=== PATIENT | male | born 1995 | race Caucasian/White ===

== ENCOUNTER 2018-05-04 10:13 | Emergency (ER) | payer OTHER ==
[2018-05-04 10:32] VITALS: RESP 18; TEMP 97.3
--- NOTE | 2018-05-04 11:25 | XR ---
Right hand HISTORY: Trauma and pain 3 views of the right hand There is a lucency at the level of the proximal fifth metacarpal, minimal angulation and slight displ acement dorsally and associated soft tissue swelling. No dislocation. IMPRESSION: Proximal fifth metacarpal fracture
--- NOTE | 2018-05-04 11:37 | ED ---
General Adult HPI - General Chief complaint: Extremity Injury, Upper Stated complaint: RIGHT WRIST / HAND INJURY Time Seen by Provider: 05/04/18 10:48 Source: patient, RN notes reviewed Mode of arrival: ambulatory Limitations: no limitations - History of Present Illness Initial comments: Patient 23-year-old male presented to the emergency room today with a chief complaint of injury to the right hand that occurred 2 days ago. He does admit that he punched a tree 2 days ago. He does admit that he's had pain locally to the fourth and fifth digits and wrist area since. Patient denies any other complaints or symptoms. Patient denies any recent fever, chills, shortness of breath, chest pain, back pain, abdominal pain, nausea or vomiting, numbness or tingling, headaches or visual changes, or any other complaints. - Related Data Previous Rx's Medication Instructions Recorded Ibuprofen [Motrin] 600 mg PO Q6HR PRN #30 day 05/04/18 Allergies Allergy/AdvReac Type Severity Reaction Status Date / Time escitalopram oxalate Allergy Unknown Verified 05/04/18 10:58 [From Lexapro] methylphenidate HCl Allergy Unknown Verified 05/04/18 10:58 [From Concerta] risperidone [From Risperdal] Allergy Unknown Verified 05/04/18 10:58 ritiometan AdvReac Nausea & Verified 05/04/18 10:58 Vomiting Review of Systems ROS Statement: Those systems with pertinent positive or pertinent negative responses have been documented in the HPI. ROS Other: All systems not noted in ROS Statement are negative. Past Medical History Past Medical History: No Reported History History of Any Multi-Drug Resistant Organisms: None Reported Additional Past Surgical History / Comment(s): Pyoplasty - Lt Kidney Past Psychological History: ADD/ADHD, Anxiety, Bipolar Smoking Status: Current every day smoker Past Alcohol Use History: Rare Past Drug Use History: Marijuana General Exam - General Exam Comments Initial Comments: General: The patient is awake and alert, in no distress, and does not appear acutely ill. Neck: The neck is supple, there is no tenderness or JVD. Musculoskeletal: Patient does have moderate swelling to the right hand over the fourth and fifth metacarpals. Patient locally tender in these areas. No tenderness down into the digit of the fourth and fifth. Radial pulses 2+. Sensations intact. Cap refill less than 2 seconds. Neurological: A&O x 3. CN II-XII intact, There are no obvious motor or sensory deficits. Coordination appears grossly intact. Speech is normal. Skin: Skin is warm and dry and no rashes or lesions are noted. Psychiatric: Normal mood and affect. Limitations: no limitations Course Vital Signs 05/04/18 10:29 Temperature 97.3 F L Pulse Rate 64 Respiratory 18 Rate Blood Pressure 109/76 O2 Sat by Pulse 99 Oximetry Medical Decision Making - Medical Decision Making X-ray reviewed and is positive for a proximal fifth metacarpal fracture with mild angulation. Injury occurred 2 days ago. At this time patient has been splinted in a short arm ulnar gutter OCL. Neurovascular rechecked and intact. Patient is advised follow-up with orthopedics in the next 2 days. Disposition Clinical Impression: Boxers fracture Disposition: HOME SELF-CARE Condition: Good Instructions: Boxer Fracture (ED) Additional Instructions: Please see splinted in place until follow-up appointment with orthopedics over the next 2 days. Please continue to ice elevate the affected area at least 4 times a day for 20 minutes at a time. Please continue Tylenol/ibuprofen for pain and return to emergency room for any other concerns. Prescriptions: Ibuprofen [Motrin] 600 mg PO Q6HR PRN #30 day PRN Reason: Pain Is patient prescribed a controlled substance at d/c from ED?: No Referrals: None,Stated [Primary Care Provider] - 1-2 days Lester Church DO [Doctor of Osteopathic Medicine] - 1-2 days Time of Disposition: 11:36
[2018-05-04 11:51] VITALS: BP 127/82; PULSE 81
== END 2018-05-04 11:52 | disposition home or self-care (01) ==
LOC: EC 10:13
DX: S62.306A Unspecified fracture of fifth metacarpal bone, right hand, initial encounter for closed fracture (principal); M79.89 Other specified soft tissue disorders; M25.531 Pain in right wrist; F17.200 Nicotine dependence, unspecified, uncomplicated; Z88.1 Allergy status to other antibiotic agents; Z88.8 Allergy status to other drugs, medicaments and biological substances; W22.8XXA Striking against or struck by other objects, initial encounter
CPT/HCPCS: 29125; 99283

== ENCOUNTER 2019-04-27 16:02 | Emergency (ER) | payer OTHER ==
[2019-04-27 16:10] VITALS: BP 130/81; PULSE 81; RESP 18; TEMP 98.5
--- NOTE | 2019-04-27 16:49 | ED ---
General Adult HPI - General Chief complaint: Psychiatric Symptoms Stated complaint: Mental Health Time Seen by Provider: 04/27/19 16:08 Source: patient, police, RN notes reviewed Mode of arrival: ambulatory Limitations: no limitations - History of Present Illness Initial comments: 24-year-old male without a past medical history bipolar disorder, anxiety, ADD presents to the emergency department for a chief complaint of self-destructive behavior. Patient states that he was in an argument with his about "childish behavior on Facebook." Patient states that he cut his left leg with a kitchen knife to demonstrate his frustration. He denies suicidal thoughts but has been suicidal before. He denies thoughts of harming anyone else. Patient states he wants to go home.Patient has no other complaints at this time including shortness of breath, chest pain, abdominal pain, nausea or vomiting, headache, or visual changes. - Related Data Home Medications Medication Instructions Recorded Confirmed No Known Home Medications 04/27/19 04/27/19 Allergies Allergy/AdvReac Type Severity Reaction Status Date / Time escitalopram oxalate Allergy Unknown Verified 04/27/19 16:23 [From Lexapro] methylphenidate HCl Allergy Unknown Verified 04/27/19 16:23 [From Concerta] risperidone [From Risperdal] Allergy Unknown Verified 04/27/19 16:23 ritiometan AdvReac Nausea & Verified 04/27/19 16:23 Vomiting Review of Systems ROS Statement: Those systems with pertinent positive or pertinent negative responses have been documented in the HPI. ROS Other: All systems not noted in ROS Statement are negative. Past Medical History Past Medical History: No Reported History History of Any Multi-Drug Resistant Organisms: None Reported Additional Past Surgical History / Comment(s): Pyoplasty - Lt Kidney Past Psychological History: ADD/ADHD, Anxiety, Bipolar Smoking Status: Current every day smoker Past Alcohol Use History: None Reported Past Drug Use History: Marijuana General Exam Limitations: no limitations General appearance: alert, in no apparent distress Head exam: Present: atraumatic, normocephalic, normal inspection Eye exam: Present: normal appearance, PERRL, EOMI. Absent: scleral icterus, conjunctival injection ENT exam: Present: normal exam, mucous membranes moist Neck exam: Present: normal inspection, full ROM. Absent: tenderness, meningismus, lymphadenopathy Respiratory exam: Present: normal lung sounds bilaterally. Absent: respiratory distress, wheezes, rales, rhonchi, stridor Cardiovascular Exam: Present: regular rate, normal rhythm, normal heart sounds. Absent: systolic murmur, diastolic murmur, rubs, gallop, clicks Extremities exam: Present: full ROM (Full range of motion of both lower extremities.), normal capillary refill (Capillary refill less than 2 seconds, DP pulse 2+ in lower extremities bilaterally), other (Patient has a 1 cm superficial laceration noted to the left anterior tib-fib.). Absent: tenderness, pedal edema, joint swelling, calf tenderness Course Vital Signs 04/27/19 16:06 Temperature 98.5 F Pulse Rate 81 Respiratory 18 Rate Blood Pressure 130/81 O2 Sat by Pulse 98 Oximetry Medical Decision Making - Medical Decision Making Wound was cleaned thoroughly. Steri-Strips were applied. Patient states his tetanus is up-to-date. Patient is denying any suicidal thoughts or thoughts of harming anyone else. Patient does have a history of bipolar disorder. Patient is medically cleared and is currently pending evaluation by EPS. Patient was evaluated by [facility] and they're recommending discharge home. She was given follow-up as well as the phone number to mobile crisis unit. Patient again denying any suicidal thoughts or thoughts of harming anyone else. Patient is much more calm and pleasant at this time. - Lab Data Lab Results 04/27/19 Range/Units 16:50 Urine Opiates Screen Not Detected (NotDetected) Ur Oxycodone Screen Not Detected (NotDetected) Urine Methadone Screen Not Detected (NotDetected) Ur Propoxyphene Screen Not Detected (NotDetected) Ur Barbiturates Screen Not Detected (NotDetected) U Tricyclic Antidepress Not Detected (NotDetected) Ur Phencyclidine Scrn Not Detected (NotDetected) Ur Amphetamines Screen Detected H (NotDetected) U Methamphetamines Scrn Detected H (NotDetected) U Benzodiazepines Scrn Not Detected (NotDetected) Urine Cocaine Screen Not Detected (NotDetected) U Marijuana (THC) Screen Detected H (NotDetected) Disposition Clinical Impression: Laceration, Situational disturbance Disposition: HOME SELF-CARE Condition: Good Instructions (If sedation given, give patient instructions): Laceration (ED) Additional Instructions: Please monitor for signs of infection which is spreading or streaking redness, drainage, or fever and return if these occur. Follow-up with primary care in 1- 2 days as well as referrals given to you. Return to the emergency dept if you have any worsening symptoms. Is patient prescribed a controlled substance at d/c from ED?: No Referrals: Yuan Mcdonald DO [Primary Care Provider] - 1-2 days Time of Disposition: 18:05
[2019-04-27 17:13] LABS: Amphetamine Screen,Urine Detected (NotDetected); Barbiturate Screen,Urine Not Detected (NotDetected); Benzodiazepines Screen,Urine Not Detected (NotDetected); Cocaine Screen,Urine Not Detected (NotDetected); Methadone Screen, Urine Not Detected (NotDetected); Opiate Screen,Urine Not Detected (NotDetected); Oxycodone Screen, Urine Not Detected (NotDetected); Phencyclidine Screen,Urine Not Detected (NotDetected); Tricyclic Antidepressant,Urine Not Detected (NotDetected); Urn Cannabinoid Scrn Detected (NotDetected)
== END 2019-04-27 18:25 | disposition home or self-care (01) ==
LOC: EC 16:02
DX: F43.20 Adjustment disorder, unspecified (principal); S81.812A Laceration without foreign body, left lower leg, initial encounter; F31.9 Bipolar disorder, unspecified; F17.200 Nicotine dependence, unspecified, uncomplicated; Z88.8 Allergy status to other drugs, medicaments and biological substances; X78.9XXA Intentional self-harm by unspecified sharp object, initial encounter
CPT/HCPCS: 80306; 82075; 99285

== ENCOUNTER 2019-11-09 11:38 | Inpatient (IN) | payer OTHER ==
--- NOTE | 2019-11-09 11:50 | ED ---
Psych HPI - General Source: patient, EMS, RN notes reviewed Mode of arrival: EMS Limitations: no limitations <Lester Reich - Last Filed: 11/09/19 11:48> <Milad Arriaga - Last Filed: 11/09/19 15:29> - General Stated Complaint: Mental Health Time Seen by Provider: 11/09/19 11:41 - History of Present Illness Initial Comments: 24-year-old male presents emergency Department chief complaint of depression, suicidal ideation, methamphetamine abuse. Patient states that he has been using for a long period of time. Patient states that he wants to get sober. He does also admits to marijuana use. Denies any physical complaints. Patient does not currently see a psychiatrist or counselor. He is on no prescription medications. No physical harm. Patient states is very depressed, states that he is suicidal no homicidal ideation. (Lester Reich) - Related Data Home Medications Medication Instructions Recorded Confirmed No Known Home Medications 04/27/19 04/27/19 Allergies Allergy/AdvReac Type Severity Reaction Status Date / Time escitalopram oxalate Allergy Unknown Verified 04/27/19 16:23 [From Lexapro] methylphenidate HCl Allergy Unknown Verified 04/27/19 16:23 [From Concerta] risperidone [From Risperdal] Allergy Unknown Verified 04/27/19 16:23 ritiometan AdvReac Nausea & Verified 04/27/19 16:23 Vomiting Review of Systems ROS Other: All systems not noted in ROS Statement are negative. <Lester Reich - Last Filed: 11/09/19 11:48> ROS Other: All systems not noted in ROS Statement are negative. <Milad Arriaga - Last Filed: 11/09/19 15:29> ROS Statement: Those systems with pertinent positive or pertinent negative responses have been documented in the HPI. Past Medical History Past Medical History: No Reported History History of Any Multi-Drug Resistant Organisms: None Reported Additional Past Surgical History / Comment(s): Pyoplasty - Lt Kidney Past Psychological History: ADD/ADHD, Anxiety, Bipolar Smoking Status: Current every day smoker Past Alcohol Use History: None Reported Past Drug Use History: Marijuana <Lester Reich - Last Filed: 11/09/19 11:48> General Exam General appearance: alert, in no apparent distress Head exam: Present: atraumatic, normocephalic, normal inspection Eye exam: Present: normal appearance, PERRL, EOMI. Absent: scleral icterus, conjunctival injection, periorbital swelling ENT exam: Present: normal exam, normal oropharynx, mucous membranes moist, TM's normal bilaterally, normal external ear exam Neck exam: Present: normal inspection, full ROM. Absent: tenderness, meningismus, lymphadenopathy Respiratory exam: Present: normal lung sounds bilaterally. Absent: respiratory distress, wheezes, rales, rhonchi, stridor Cardiovascular Exam: Present: regular rate, normal rhythm, normal heart sounds. Absent: systolic murmur, diastolic murmur, rubs, gallop, clicks GI/Abdominal exam: Present: soft, normal bowel sounds. Absent: distended, tenderness, guarding, rebound, rigid Neurological exam: Present: alert, oriented X3, CN II-XII intact Psychiatric exam: Present: depressed, flat affect Skin exam: Present: warm, dry, intact, normal color. Absent: rash <Lester Reich - Last Filed: 11/09/19 11:48> Course Vital Signs 11/09/19 11:46 Temperature 98.3 F Pulse Rate 98 Respiratory 18 Rate Blood Pressure 123/96 O2 Sat by Pulse 99 Oximetry Medical Decision Making <Milad Arriaga - Last Filed: 11/09/19 15:29> - Medical Decision Making Patient seen by mental health services, who will admit. (Milad Arriaga) Disposition <Lester Reich - Last Filed: 11/09/19 11:48> Is patient prescribed a controlled substance at d/c from ED?: No Decision Time: 15:29 <Milad Arriaga - Last Filed: 11/09/19 15:29> Clinical Impression: Depression, Suicidal ideation Disposition: TRANSFER TO PSYCH HOSP/UNIT
[2019-11-09] MEDS ORDERED: MAG HYDROX/AL HYDROX/SIMETH 30 ML CUP PO PRN (15:18)
[2019-11-09] MEDS ORDERED: ACETAMINOPHEN TAB 325 MG TAB PO PRN (15:18)
[2019-11-09] MEDS ORDERED: LORazepam 1 MG TAB PO PRN (15:18)
[2019-11-09] MEDS ORDERED: MAGNESIUM HYDROXIDE 2,400 MG/10 ML CUP PO PRN (15:18)
[2019-11-09] MEDS ORDERED: ZIPRASIDONE 20 MG VIAL IM PRN (15:18)
[2019-11-09 15:43] LABS: Appearance,Urine Cloudy (Clear); Bacteria,Urine Rare /hpf; Bilirubin,Urine Negative (Negative); Blood,Urine Negative (Negative); Calcium Oxalate Crystals,Urine Few /hpf; Color,Urine Yellow; Glucose,Urine (UA) Negative (Negative); Ketones,Urine Negative (Negative); Leukocyte Esterase,Urine Negative (Negative); Mucus,Urine Many /hpf; Nitrite,Urine Negative (Negative); PH, Urine 5.5 (5.0-8.0); Protein,Urine 1+ (Negative); RBC,Urine 18 /hpf (0-5); Specific Gravity,Urine 1.025 (1.001-1.035); Sperm,Urine Occasional /hpf; Squamous Epithelial Cell,Urine <1 /hpf (0-4); Urobilinogen,Urine <2.0 mg/dL (<2.0); WBC,Urine 4 /hpf (0-5)
[2019-11-09 16:11] LABS: Amphetamine Screen,Urine Detected (NotDetected); Barbiturate Screen,Urine Not Detected (NotDetected); Benzodiazepines Screen,Urine Not Detected (NotDetected); Cocaine Screen,Urine Not Detected (NotDetected); Methadone Screen, Urine Not Detected (NotDetected); Opiate Screen,Urine Not Detected (NotDetected); Oxycodone Screen, Urine Not Detected (NotDetected); Phencyclidine Screen,Urine Not Detected (NotDetected); Tricyclic Antidepressant,Urine Not Detected (NotDetected); Urn Cannabinoid Scrn Detected (NotDetected)
--- NOTE | 2019-11-09 17:05 | P.CONS ---
History of Present Illness - Reason for Consult Consult date: 11/09/19 Medical management - Chief Complaint Depression with suicidal thoughts - History of Present Illness This is a 24-year-old male with past medical history significant for underlying depression who presented to the ER with severe depression and suicidal thoughts. Patient is currently admitted to the psych unit. I was asked to see him for medical management. Patient himself does not have any specific complaints or concerns. He said that he is feeling slightly better. He said that he was very depressed but did not have an actual plan. He only had thoughts about ending his life. He admits to using methamphetamine. He also smokes cigarettes approximately one pack of cigarettes per day. Review of Systems Review of system: 14 points review of systems were obtained and were negative except to what were mentioned in the HPI. Past Medical History Past Medical History: No Reported History History of Any Multi-Drug Resistant Organisms: None Reported Additional Past Surgical History / Comment(s): Pyoplasty - Lt Kidney Past Psychological History: ADD/ADHD, Anxiety, Bipolar Smoking Status: Current every day smoker Past Alcohol Use History: None Reported Past Drug Use History: Marijuana Medications and Allergies Home Medications Medication Instructions Recorded Confirmed Type No Known Home Medications 04/27/19 11/09/19 History Allergies Allergy/AdvReac Type Severity Reaction Status Date / Time amphetamine [From Adderall] Allergy Severe Anaphylaxis Verified 11/09/19 16:56 dextroamphetamine Allergy Severe Anaphylaxis Verified 11/09/19 16:56 [From Adderall] escitalopram oxalate Allergy Severe Anaphylaxis Verified 11/09/19 16:56 [From Lexapro] methylphenidate Allergy Severe Anaphylaxis Verified 11/09/19 16:55 [From Ritalin] methylphenidate HCl Allergy Severe Anaphylaxis Verified 11/09/19 16:56 [From Concerta] risperidone [From Risperdal] Allergy Severe Anaphylaxis Verified 11/09/19 16:56 trazodone Allergy Severe Anaphylaxis Verified 11/09/19 16:55 ritiometan AdvReac Nausea & Verified 11/09/19 15:50 Vomiting Physical Exam Vitals: Vital Signs Temp Pulse Resp BP Pulse Ox 11/09/19 15:33 98.9 F 71 16 129/72 99 11/09/19 11:46 98.3 F 98 18 123/96 99 Intake and Output 05/06/20 05/06/20 05/06/20 06:59 14:59 22:59 Other: Weight 70.307 kg General: The patient is awake and alert, in no distress Eye: there is normal conjunctiva bilaterally. Neck: The neck is supple, there is no JVD. Cardiovascular: Normal S1-S2, no S3-S4, no murmurs. Respiratory: Lungs clear to auscultation bilaterally Gastrointestinal: Abdomen is soft, nontender Musculoskeletal: There is no pedal edema. Neurological:. Speech is normal. Skin: Skin is warm and dry Results Labs: Abnormal Lab Results - Last 24 Hours (Table) 11/09/19 Range/Units 15:35 Urine Protein 1+ H (Negative) Urine RBC 18 H (0-5) /hpf Calcium Oxalate Crystal Few H (None) /hpf Urine Bacteria Rare H (None) /hpf Urine Mucus Many H (None) /hpf Urine Sperm Occasional H (None) /hpf Ur Amphetamines Screen Detected H (NotDetected) U Marijuana (THC) Screen Detected H (NotDetected) Assessment and Plan Assessment: 1. Severe depression with suicidal thoughts, management per psychiatry 2. Methamphetamine abuse: Counseled extensively to quit 3. Tobacco abuse: Counseled to quit. I would order nicotine patch Today, I reviewed his medication list and lab work results. Management per psychiatry. Thank you very much for the consultation. Please do not hesitate to call us back. We will follow-up on as-needed basis only.
[2019-11-09] MEDS: NICOTINE 21MG/24HR PATCH TRANSDERM SCH (19:09)
[2019-11-10 08:12] LABS: Basophils % (A) 1 %; Eosinophils # (A) 0.1 k/uL (0-0.7); Eosinophils % (A) 2 %; HCT 42.7 % (39.0-53.0); HGB 14.6 gm/dL (13.0-17.5); Lymphocytes # (A) 2.7 k/uL (1.0-4.8); Lymphocytes % (A) 38 %; MCH 31.7 pg (25.0-35.0); MCHC 34.3 g/dL (31.0-37.0); MCV 92.5 fL (80.0-100.0); Monocytes # (A) 0.4 k/uL (0-1.0); Monocytes % (A) 5 %; Neutrophils # (A) 3.6 k/uL (1.3-7.7); Neutrophils % (A) 51 %; Platelet Count 306 k/uL (150-450); RBC 4.62 m/uL (4.30-5.90); RDW 12.2 % (11.5-15.5)
[2019-11-10 08:28] LABS: ALT 16 U/L (4-49); AST 25 U/L (17-59); African American GFR (CKD) >90 (>60 ml/min/1.73 sqM); Albumin 4.5 g/dL (3.5-5.0); Alkaline Phosphatase 61 U/L (38-126); Anion Gap 10 mmol/L; Blood Urea Nitrogen 16 mg/dL (9-20); Calcium 9.6 mg/dL (8.4-10.2); Carbon Dioxide 28 mmol/L (22-30); Chloride 101 mmol/L (98-107); Glucose 91 mg/dL (74-99); Non-African American GFR(CKD) >90 (>60 ml/min/1.73 sqM); Potassium 4.4 mmol/L (3.5-5.1); Sodium 139 mmol/L (137-145); Total Bilirubin 0.7 mg/dL (0.2-1.3); Total Protein 7.7 g/dL (6.3-8.2)
[2019-11-10] MEDS: NICOTINE 21MG/24HR PATCH TRANSDERM SCH (08:37)
[2019-11-10] MEDS ORDERED: NICOTINE 21MG/24HR PATCH TRANSDERM SCH ×2 (09:00)
[2019-11-10] MEDS ORDERED: FLUoxetine HCL 20 MG CAP PO SCH (11:30)
--- NOTE | 2019-11-10 11:41 | P.HP ---
Psychiatric H&P - . H&P Date: 11/10/19 History & Physical: Allergies Allergy/AdvReac Type Severity Reaction Status Date / Time amphetamine From Adderall Allergy Severe Anaphylaxis Verified 11/09/19 16:56 dextroamphetamine Allergy Severe Anaphylaxis Verified 11/09/19 16:56 From Adderall escitalopram oxalate Allergy Severe Anaphylaxis Verified 11/09/19 16:56 From Lexapro methylphenidate Allergy Severe Anaphylaxis Verified 11/09/19 16:55 From Ritalin methylphenidate HCl Allergy Severe Anaphylaxis Verified 11/09/19 16:56 From Concerta risperidone From Risperdal Allergy Severe Anaphylaxis Verified 11/09/19 16:56 trazodone Allergy Severe Anaphylaxis Verified 11/09/19 16:55 ritiometan AdvReac Nausea & Verified 11/09/19 15:50 Vomiting Vital Signs Temp 99.1 F 11/09/19 22:26 Pulse 81 11/09/19 15:52 Resp 16 11/09/19 15:52 BP 118/81 11/09/19 15:52 Pulse Ox 99 11/09/19 15:52 Intake & Output 11/09/19 11/10/19 11/10/19 18:59 06:59 18:59 Weight 63.957 kg Laboratory Last Values WBC 7.0 k/uL (3.8-10.6) 11/10/19 07:24 RBC 4.62 m/uL (4.30-5.90) 11/10/19 07:24 Hgb 14.6 gm/dL (13.0-17.5) 11/10/19 07:24 Hct 42.7 % (39.0-53.0) 11/10/19 07:24 MCV 92.5 fL (80.0-100.0) 11/10/19 07:24 MCH 31.7 pg (25.0-35.0) 11/10/19 07:24 MCHC 34.3 g/dL (31.0-37.0) 11/10/19 07:24 RDW 12.2 % (11.5-15.5) 11/10/19 07:24 Plt Count 306 k/uL (150-450) 11/10/19 07:24 Neutrophils % 51 % 11/10/19 07:24 Lymphocytes % 38 % 11/10/19 07:24 Monocytes % 5 % 11/10/19 07:24 Eosinophils % 2 % 11/10/19 07:24 Basophils % 1 % 11/10/19 07:24 Neutrophils # 3.6 k/uL (1.3-7.7) 11/10/19 07:24 Lymphocytes # 2.7 k/uL (1.0-4.8) 11/10/19 07:24 Monocytes # 0.4 k/uL (0-1.0) 11/10/19 07:24 Eosinophils # 0.1 k/uL (0-0.7) 11/10/19 07:24 Basophils # 0.0 k/uL (0-0.2) 11/10/19 07:24 Sodium 139 mmol/L (137-145) 11/10/19 07:24 Potassium 4.4 mmol/L (3.5-5.1) 11/10/19 07:24 Chloride 101 mmol/L (98-107) 11/10/19 07:24 Carbon Dioxide 28 mmol/L (22-30) 11/10/19 07:24 Anion Gap 10 mmol/L 11/10/19 07:24 BUN 16 mg/dL (9-20) 11/10/19 07:24 Creatinine 0.71 mg/dL (0.66-1.25) 11/10/19 07:24 Est GFR (CKD-EPI)AfAm >90 (>60 ml/min/1.73 sqM) 11/10/19 07:24 Est GFR (CKD-EPI)NonAf >90 (>60 ml/min/1.73 sqM) 11/10/19 07:24 Glucose 91 mg/dL (74-99) 11/10/19 07:24 Calcium 9.6 mg/dL (8.4-10.2) 11/10/19 07:24 Total Bilirubin 0.7 mg/dL (0.2-1.3) 11/10/19 07:24 AST 25 U/L (17-59) 11/10/19 07:24 ALT 16 U/L (4-49) 11/10/19 07:24 Alkaline Phosphatase 61 U/L (38-126) 11/10/19 07:24 Total Protein 7.7 g/dL (6.3-8.2) 11/10/19 07:24 Albumin 4.5 g/dL (3.5-5.0) 11/10/19 07:24 TSH 0.893 mIU/L (0.465-4.680) 11/10/19 07:24 Urine Color Yellow 11/09/19 15:35 Urine Appearance Cloudy (Clear) 11/09/19 15:35 Urine pH 5.5 (5.0-8.0) 11/09/19 15:35 Ur Specific [place] 1.025 (1.001-1.035) 11/09/19 15:35 Urine Protein 1+ (Negative) H 11/09/19 15:35 Urine Glucose (UA) Negative (Negative) 11/09/19 15:35 Urine Ketones Negative (Negative) 11/09/19 15:35 Urine Blood Negative (Negative) 11/09/19 15:35 Urine Nitrite Negative (Negative) 11/09/19 15:35 Urine Bilirubin Negative (Negative) 11/09/19 15:35 Urine Urobilinogen <2.0 mg/dL (<2.0) 11/09/19 15:35 Ur Leukocyte Esterase Negative (Negative) 11/09/19 15:35 Urine RBC 18 /hpf (0-5) H 11/09/19 15:35 Urine WBC 4 /hpf (0-5) 11/09/19 15:35 Ur Squamous Epith Cells <1 /hpf (0-4) 11/09/19 15:35 Calcium Oxalate Crystal Few /hpf (None) H 11/09/19 15:35 Urine Bacteria Rare /hpf (None) H 11/09/19 15:35 Urine Mucus Many /hpf (None) H 11/09/19 15:35 Urine Sperm Occasional /hpf (None) H 11/09/19 15:35 Urine Opiates Screen Not Detected (NotDetected) 11/09/19 15:35 Ur Oxycodone Screen Not Detected (NotDetected) 11/09/19 15:35 Urine Methadone Screen Not Detected (NotDetected) 11/09/19 15:35 Ur Propoxyphene Screen Not Detected (NotDetected) 11/09/19 15:35 Ur Barbiturates Screen Not Detected (NotDetected) 11/09/19 15:35 U Tricyclic Antidepress Not Detected (NotDetected) 11/09/19 15:35 Ur Phencyclidine Scrn Not Detected (NotDetected) 11/09/19 15:35 Ur Amphetamines Screen Detected (NotDetected) H 11/09/19 15:35 U Methamphetamines Scrn Not Detected (NotDetected) 11/09/19 15:35 U Benzodiazepines Scrn Not Detected (NotDetected) 11/09/19 15:35 Urine Cocaine Screen Not Detected (NotDetected) 11/09/19 15:35 U Marijuana (THC) Screen Detected (NotDetected) H 11/09/19 15:35 11/10/19 11:34 IDENTIFYING DATA: Patient is a 24-year-old male with a history of polysubstance abuse who currently lives with his mother and also his has 2 kids and is currently unemployed. HPI: Patient presented to the hospital yesterday via EMS with complaints of depression and suicidal thoughts. According to ER report patient was endorsing depression and suicidal ideations and recent methamphetamine use. He also s tated that he wanted to get sober and UDS was positive for THC and methamphetamine. Patient was admitted to the mental health unit and was interviewed by screenplay writer today. Patient appeared to be superficially cooperative and somewhat appropriate during the interview. He states that he went on a "meth binge" for the past 10 days and states that he was using "a lot" and cannot remember much of what happened. He states that he was feeling suicidal and was eating poorly and sleeping poorly at that time. He claims that overnight he feels a bit better today and states that "my attitude is getting t here". He states that he would like to stay sober however refused rehab at this time. He states that he does have some anxiety. He claims that he was dealing with some depression before hand. He claims that he had a better sleep last night and appetite is fair. Patient denies any suicidal or homicidal ideations intent or plan. At this time patient denies any auditory or visual hallucinations. Patient denies any flight of ideas racing thoughts and increased in goal directed behavior. Patient admits to using methamphetamine, THC daily and cigarettes daily. PAST PSYCHIATRIC HISTORY: Patient states that he has a history of depression and anxiety. He denies any mental health admissions in the past and claims that he previously was on Wellbutrin. He admits to one episode of attempting to hang himself with a phone cord. He denies any psychiatric outpatient follow-up. PMH:denies ALLERGIES: as per EMR CHEMICAL DEPENDENCY HISTORY: as per HPI FAMILY PSYCHIATRIC/SUBSTANCE USE HISTORY: denies SOCIAL HISTORY: Patient was born and raised in [place] and states that he "moved all over [place]". He claims that currently he is living with his mother and also his and has 2 kids and is unemployed. He states that he completed up to the ninth grade and dropped out to take care of children. MENTAL STATUS EXAM: General Appearance: Patient appears to be stated age is alert, directable, and superficially cooperative. Patient appears to have fair hygiene and grooming. Multiple tattoos over his body. Behavior: Patient is seated without any agitated behavior. Speech: Patient's speech is fluent and nonpressured. Mood/Affect: Patient reports their mood is "a little depressed", affect is congruent and constricted. Suicidality/Homicidality: Patient denies having any homicidal ideation intent or plan. Denies any suicidal ideations intent or plan Perceptions: Patient denies any visual hallucinations and denies any auditory hallucinations Though content/process: There is no evidence of any delusional thought content and thought process is linear and goal-directed. Memory and concentration: AOX3, grossly intact for the purposes of this session. Can spell "WORLD" backwards Judgment and insight: Limited STRENGTHS/WEAKNESSES: strength is that patient is resilient. Weakness is that patient has poor judgment INTELLECT: average IMPRESSIONS: Depressive disorder unspecified, rule out substance-induced depressive disorder Anxiety disorder unspecified Methamphetamine abuse Cannabis use disorder Nicotine dependence PLAN: -Patient is admitted under voluntary status to MHU for stabilization of psychiatric symptoms and safety. Patient signed adult voluntary form and medication consent and is placed in patient's chart. -Medications : Will start patient on Prozac 20 mg daily for mood/anxiety. -Ativan and Geodon PRN for agitation/aggression -Patient was counselled on substance abuse and desired to cut back on use -Patient was informed of the risks, benefits and side effects of the medication and patient verbally consented to taking the medications. Patient signed med consent form and was placed in chart. -Internal Medicine consult to perform medical evaluation and physical. -NRT - nicotine patch -SW on board for discharge planning. Encourage patient to participate in groups to work on coping skills. Outside Cutter spoke in depth with patient about options for substance use treatment and offered inpatient substance-abuse rehab however patient declined at this time and states that he would rather do outpatient treatment and try to "quit cold turkey". Likely discharge back home tomorrow.
--- NOTE | 2019-11-10 16:58 | P.PN ---
Progress Note - Text I was asked to reassess the patient as he was complaining of a ulcers on his penis. Patient reported that he noted the ulcer today. He said that he has multiple sexual partners. On exam, patient had painful genital ulcers mostly on the dorsal aspect of the penis with significant tenderness to palpation. Testicles appeared normal. She denies any fevers or myalgia. He has a highly suspicious for herpes. I would start valacyclovir 1000 mg twice daily for 7 days. Recommend follow-up with PCP for further screening for STDs including HIV.
[2019-11-10] MEDS ORDERED: ACYCLOVIR 800 MG TAB PO SCH (17:00)
[2019-11-10] MEDS ORDERED: MIRTAZAPINE 15 MG TAB PO SCH (21:00)
[2019-11-10] MEDS: valACYclovir HCL 1,000 MG TABLET PO SCH (21:21)
[2019-11-11 07:17] VITALS: BP 118/64; PULSE 59; RESP 17; TEMP 98.5
--- NOTE | 2019-11-11 09:31 | P.DS ---
Providers Date of admission: 11/09/19 15:16 Expected date of discharge: 11/11/19 Attending physician: Jordy Ghosh MD Consults: 11/09/19 15:18 Consult Physician Routine Consulting Provider: Kayy Bunn Consult Reason/Comments: H and P Do you want consulting provider notified?: Yes Primary care physician: Stated None - Discharge Diagnosis(es) (1) Depressive disorder Current Visit: Yes Status: Acute Priority: High (2) Anxiety disorder Current Visit: Yes Status: Acute Priority: Medium (3) Methamphetamine abuse Current Visit: Yes Status: Acute Priority: High (4) Cannabis use disorder, mild, abuse Current Visit: Yes Status: Acute Priority: Medium (5) Nicotine dependence Current Visit: Yes Status: Acute Priority: Low Hospital Course: Admission HPI: Patient is a 24-year-old male with a history of polysubstance abuse who currently lives with his mother and also his has 2 kids and is currently unemployed. Patient presented to the hospital yesterday via EMS with complaints of depression and suicidal thoughts. According to ER report patient was endorsing depression and suicidal ideations and recent methamphetamine use. He also stated that he wanted to get sober and UDS was positive for THC and methamphetamine. Patient was admitted to the mental health unit and was interviewed by real estate underwriter today. Patient appeared to be superficially cooperative and somewhat appropriate during the interview. He states that he went on a "meth binge" for the past 10 days and states that he was using "a lot" and cannot remember much of what happened. He states that he was feeling suicidal and was eating poorly and sleeping poorly at that time. He claims that overni ght he feels a bit better today and states that "my attitude is getting there". He states that he would like to stay sober however refused rehab at this time. He states that he does have some anxiety. He claims that he was dealing with some depression before hand. He claims that he had a better sleep last night and appetite is fair. Patient denies any suicidal or homicidal ideations intent or plan. At this time patient denies any auditory or visual hallucinations. Patient denies any flight of ideas racing thoughts and increased in goal directed behavior. Patient admits to using methamphetamine, THC daily and cigarettes daily. Hospital course: Upon admission to the unit patient was initially depressed and anxious and going through withdrawals from his substance use. Patient was however directable and agreeable to commence treatment. Patient got along well with other patients on the unit and followed unit protocol. Patient was compliant with the medications and denied any side effects throughout hospital course. Patient was started on Remeron 15 mg daily at bedtime for mood/insomnia. Patient spoke of his stressors and engaged in therapy both group and individual. Patient was also seen by medical team for history and physical exam. Patient complained of having painful genital lesions/ulcers and was evaluated by hospitalist who stated that lesions are most likely due to genital herpes and informed patient that he needed to have an outpatient STD panel and also will be started on valacyclovir for 7 days. Throughout the course of the hospitalization patient gradually improved with regards to mood, anxiety, sleep. Patient was more future oriented prior to discharge. On the day of discharge patient denied any suicidal or homicidal ideations intent or plan denied any auditory or visual hallucinations. Patient endorsed wanting to live for his health and children. The patient denied any access to guns or weapons. Patient denied any paranoia and did not endorse any delusions. Patient does have a significant history of substance abuse and was counseled on abstaining from all substances including alcohol and marijuana. Patient was fairly superficial and claimed that he did not have a "drug problem" and was offered inpatient substance rehab however patient declined several times. Patient states that he wants to "quit cold turkey". Patient was also counseled on the medications and need for regular compliance and was encouraged to follow-up with their outpatient appointment for mental health and also for primary care. Prior to discharge a family meeting will be arranged by social sciences research scientist to answer any questions and ensure safety upon discharge. Mental status exam: General Appearance: Patient appears to be stated age is tall/thin, alert, and directable. Patient is in no acute distress and has fair hygiene and grooming Behavior: Patient is calmly seated without any agitated behavior. Speech: Patient's speech is fluent and nonpressured. Mood/Affect: Patient reports their mood is "good", affect is congruent and euthymic. Suicidality/Homicidality: Patient denies having any suicidal or homicidal ideation intent or plan. Perceptions: Patient denies any auditory or visual hallucinations. Though content/process: There is no evidence of any delusional thought content and thought process is linear and goal-directed. Memory and concentration: AOX3, grossly intact for the purposes of this session. Can spell "WORLD" backwards correctly. Judgment and insight: improved with guarded prognosis Impression: Depressive disorder unspecified, rule out substance-induced depressive disorder Anxiety disorder unspecified Methamphetamine abuse Cannabis use disorder Nicotine dependence Plan: -Continue with discharge today as patient has improved and stabilized psychiatrically and is not currently an imminent threat to himself and/or others. -Continue medications: Remeron 15 mg daily at bedtime for insomnia/mood. -Patient was counseled on the need for medication compliance and appropriate follow-up at mental health and also primary care for medical issues. Patient verbalized understanding and agreed. -Social work to arrange for and conduct family meeting to ensure safety upon discharge and answer any questions/concerns. Social work also to arrange for patients follow up appointments for psychiatric care along with follow up with [facility] care provider. Patient was also advised to obtain a full STD panel as an outpatient with his PCP and was counseled on safe sex practices. -Patient counseled on abstaining from recreational drugs and marijuana and alcohol. Was informed/educated on the adverse effects on their physical and mental health. Patient verbally agreed and understood. Patient was offered substance abuse treatment however declined at this time. -Patient was instructed to return to the hospital or seek immediate medical care if their psychiatric or medical symptoms do worsen or reoccur. Allergies Allergy/AdvReac Type Severity Reaction Status Date / Time amphetamine [From Adderall] Allergy Severe Anaphylaxis Verified 11/09/19 16:56 dextroamphetamine Allergy Severe Anaphylaxis Verified 11/09/19 16:56 [From Adderall] escitalopram oxalate Allergy Severe Anaphylaxis Verified 11/09/19 16:56 [From Lexapro] methylphenidate Allergy Severe Anaphylaxis Verified 11/09/19 16:55 [From Ritalin] methylphenidate HCl Allergy Severe Anaphylaxis Verified 11/09/19 16:56 [From Concerta] risperidone [From Risperdal] Allergy Severe Anaphylaxis Verified 11/09/19 16:56 trazodone Allergy Severe Anaphylaxis Verified 11/09/19 16:55 ritiometan AdvReac Nausea & Verified 11/09/19 15:50 Vomiting Laboratory Results WBC 7.0 k/uL (3.8-10.6) 11/10/19 07:24 RBC 4.62 m/uL (4.30-5.90) 11/10/19 07:24 Hgb 14.6 gm/dL (13.0-17.5) 11/10/19 07:24 Hct 42.7 % (39.0-53.0) 11/10/19 07:24 MCV 92.5 fL (80.0-100.0) 11/10/19 07:24 MCH 31.7 pg (25.0-35.0) 11/10/19 07:24 MCHC 34.3 g/dL (31.0-37.0) 11/10/19 07:24 RDW 12.2 % (11.5-15.5) 11/10/19 07:24 Plt Count 306 k/uL (150-450) 11/10/19 07:24 Neutrophils % 51 % 11/10/19 07:24 Lymphocytes % 38 % 11/10/19 07:24 Monocytes % 5 % 11/10/19 07:24 Eosinophils % 2 % 11/10/19 07:24 Basophils % 1 % 11/10/19 07:24 Neutrophils # 3.6 k/uL (1.3-7.7) 11/10/19 07:24 Lymphocytes # 2.7 k/uL (1.0-4.8) 11/10/19 07:24 Monocytes # 0.4 k/uL (0-1.0) 11/10/19 07:24 Eosinophils # 0.1 k/uL (0-0.7) 11/10/19 07:24 Basophils # 0.0 k/uL (0-0.2) 11/10/19 07:24 Sodium 139 mmol/L (137-145) 11/10/19 07:24 Potassium 4.4 mmol/L (3.5-5.1) 11/10/19 07:24 Chloride 101 mmol/L (98-107) 11/10/19 07:24 Carbon Dioxide 28 mmol/L (22-30) 11/10/19 07:24 Anion Gap 10 mmol/L 11/10/19 07:24 BUN 16 mg/dL (9-20) 11/10/19 07:24 Creatinine 0.71 mg/dL (0.66-1.25) 11/10/19 07:24 Est GFR (CKD-EPI)AfAm >90 (>60 ml/min/1.73 sqM) 11/10/19 07:24 Est GFR (CKD-EPI)NonAf >90 (>60 ml/min/1.73 sqM) 11/10/19 07:24 Glucose 91 mg/dL (74-99) 11/10/19 07:24 Calcium 9.6 mg/dL (8.4-10.2) 11/10/19 07:24 Total Bilirubin 0.7 mg/dL (0.2-1.3) 11/10/19 07:24 AST 25 U/L (17-59) 11/10/19 07:24 ALT 16 U/L (4-49) 11/10/19 07:24 Alkaline Phosphatase 61 U/L (38-126) 11/10/19 07:24 Total Protein 7.7 g/dL (6.3-8.2) 11/10/19 07:24 Albumin 4.5 g/dL (3.5-5.0) 11/10/19 07:24 TSH 0.893 mIU/L (0.465-4.680) 11/10/19 07:24 Urine Color Yellow 11/09/19 15:35 Urine Appearance Cloudy (Clear) 11/09/19 15:35 Urine pH 5.5 (5.0-8.0) 11/09/19 15:35 Ur Specific [place] 1.025 (1.001-1.035) 11/09/19 15:35 Urine Protein 1+ (Negative) H 11/09/19 15:35 Urine Glucose (UA) Negative (Negative) 11/09/19 15:35 Urine Ketones Negative (Negative) 11/09/19 15:35 Urine Blood Negative (Negative) 11/09/19 15:35 Urine Nitrite Negative (Negative) 11/09/19 15:35 Urine Bilirubin Negative (Negative) 11/09/19 15:35 Urine Urobilinogen <2.0 mg/dL (<2.0) 11/09/19 15:35 Ur Leukocyte Esterase Negative (Negative) 11/09/19 15:35 Urine RBC 18 /hpf (0-5) H 11/09/19 15:35 Urine WBC 4 /hpf (0-5) 11/09/19 15:35 Ur Squamous Epith Cells <1 /hpf (0-4) 11/09/19 15:35 Calcium Oxalate Crystal Few /hpf (None) H 11/09/19 15:35 Urine Bacteria Rare /hpf (None) H 11/09/19 15:35 Urine Mucus Many /hpf (None) H 11/09/19 15:35 Urine Sperm Occasional /hpf (None) H 11/09/19 15:35 Urine Opiates Screen Not Detected (NotDetected) 11/09/19 15:35 Ur Oxycodone Screen Not Detected (NotDetected) 11/09/19 15:35 Urine Methadone Screen Not Detected (NotDetected) 11/09/19 15:35 Ur Propoxyphene Screen Not Detected (NotDetected) 11/09/19 15:35 Ur Barbiturates Screen Not Detected (NotDetected) 11/09/19 15:35 U Tricyclic Antidepress Not Detected (NotDetected) 11/09/19 15:35 Ur Phencyclidine Scrn Not Detected (NotDetected) 11/09/19 15:35 Ur Amphetamines Screen Detected (NotDetected) H 11/09/19 15:35 U Methamphetamines Scrn Not Detected (NotDetected) 11/09/19 15:35 U Benzodiazepines Scrn Not Detected (NotDetected) 11/09/19 15:35 Urine Cocaine Screen Not Detected (NotDetected) 11/09/19 15:35 U Marijuana (THC) Screen Detected (NotDetected) H 11/09/19 15:35 Vital Signs Temp 98.5 F 11/11/19 06:50 Pulse 59 L 11/11/19 06:50 Resp 17 11/11/19 06:50 BP 118/64 11/11/19 06:50 Pulse Ox 98 11/11/19 06:50 Patient Condition at Discharge: Stable Plan - Discharge Summary Discharge Rx Participant: Yes New Discharge Prescriptions: New Nicotine 21Mg/24Hr Patch [Habitrol] 1 patch TRANSDERM DAILY 14 Days patch Mirtazapine [Remeron] 15 mg PO HS 30 Days tab Acetaminophen Tab [Tylenol] 650 mg PO Q4HR PRN tab PRN Reason: Pain/Discomfort valACYclovir HCL [Valtrex] 1,000 mg PO BID 7 Days tablet Discharge Medication List Acetaminophen Tab [Tylenol] 650 mg PO Q4HR PRN tab 11/11/19 [Rx] Mirtazapine [Remeron] 15 mg PO HS 30 Days tab 11/11/19 [Rx] Nicotine 21Mg/24Hr Patch [Habitrol] 1 patch TRANSDERM DAILY 14 Days patch 11/11/19 [Rx] valACYclovir HCL [Valtrex] 1,000 mg PO BID 7 Days tablet 11/11/19 [Rx] Follow up Appointment(s)/Referral(s): None,Stated [Primary Care Provider] - 1-2 days Discharge Disposition: HOME SELF-CARE
[2019-11-11] MEDS: NICOTINE 21MG/24HR PATCH TRANSDERM SCH (10:33)
[2019-11-11] MEDS: valACYclovir HCL 1,000 MG TABLET PO SCH (10:33)
== END 2019-11-11 12:05 | disposition home or self-care (01) | DRG 885 ==
LOC: EC 11:38 → 3MHU 15:16
PROVIDERS: ADMIT Psychiatry & Neurology Psychiatry; ATTEND Psychiatry & Neurology Psychiatry
DX: F31.4 Bipolar disorder, current episode depressed, severe, without psychotic features (principal); R45.851 Suicidal ideations; F15.10 Other stimulant abuse, uncomplicated; F41.9 Anxiety disorder, unspecified; F12.10 Cannabis abuse, uncomplicated; F17.210 Nicotine dependence, cigarettes, uncomplicated; F90.9 Attention-deficit hyperactivity disorder, unspecified type; A60.01 Herpesviral infection of penis; G47.00 Insomnia, unspecified; Z56.0 Unemployment, unspecified; Z88.8 Allergy status to other drugs, medicaments and biological substances
CPT/HCPCS: 80053; 80306; 81001; 82075; 84443; 85025; 99285

== ENCOUNTER 2020-02-25 14:00 | Emergency (ER) | payer OTHER ==
[2020-02-25] MEDS ORDERED: ACETAMINOPHEN TAB 325 MG TAB PO STA (14:34)
--- NOTE | 2020-02-25 14:38 | ED ---
General Adult HPI - General Chief complaint: Extremity Injury, Lower Stated complaint: R Ankle Injury Time Seen by Provider: 02/25/20 14:27 Source: patient, RN notes reviewed, old records reviewed Mode of arrival: ambulatory Limitations: no limitations - History of Present Illness Initial comments: 24-year-old male patient presents ED chief complaint of right foot and ankle injury. Patient reports that his friend was on a skateboard. Patient reports that he used his arms to stop his friend as he was going past and when his friend stopped his foot slipped rolling the skateboard behind him and hitting the patient on the dorsal aspect of his right foot/ankle region. Patient was able to walk approximately 2 blocks home after the injury but is having pain in the right ankle and foot region and was reevaluated. Denies falling to the ground. Denies any other acute complaints. Systemic: Pt denies fatigue, fever/chills, rash. Pt denies weakness, night sweats, weight loss. Neuro: Pt denies headache, visual disturbances, syncope or pre-syncope. HEENT: Pt denies ocular discharge or irritation, otalgia, rhinorrhea, pharyngitis or notable lymphadenopathy. Cardiopulmonary: Pt denies chest pain, SOB, heart palpitations, dyspnea on exertion. Abdominal/GI: Pt denies abdominal pain, n/v/d. : Pt denies dysuria, burning w/ urination, frequency/urgency. Denies new onset urinary or bowel incontinence. MSK: Pt denies loss of strength or function in extremities. Neuro: Pt denies new onset weakness, paresthesias. - Related Data Previous Rx's Medication Instructions Recorded Acetaminophen Tab [Tylenol] 650 mg PO Q4HR PRN tab 11/11/19 Mirtazapine [Remeron] 15 mg PO HS 30 Days tab 11/11/19 Nicotine 21Mg/24Hr Patch [Habitrol] 1 patch TRANSDERM DAILY 14 Days 11/11/19 patch valACYclovir HCL [Valtrex] 1,000 mg PO BID 7 Days tablet 11/11/19 Allergies Allergy/AdvReac Type Severity Reaction Status Date / Time amphetamine [From Adderall] Allergy Severe Anaphylaxis Verified 02/25/20 14:25 dextroamphetamine Allergy Severe Anaphylaxis Verified 02/25/20 14:25 [From Adderall] escitalopram oxalate Allergy Severe Anaphylaxis Verified 02/25/20 14:25 [From Lexapro] methylphenidate Allergy Severe Anaphylaxis Verified 02/25/20 14:25 [From Ritalin] methylphenidate HCl Allergy Severe Anaphylaxis Verified 02/25/20 14:25 [From Concerta] risperidone [From Risperdal] Allergy Severe Anaphylaxis Verified 02/25/20 14:25 trazodone Allergy Severe Anaphylaxis Verified 02/25/20 14:25 ritiometan AdvReac Nausea & Verified 02/25/20 14:25 Vomiting Review of Systems ROS Statement: Those systems with pertinent positive or pertinent negative responses have been documented in the HPI. ROS Other: All systems not noted in ROS Statement are negative. Past Medical History Past Medical History: No Reported History History of Any Multi-Drug Resistant Organisms: None Reported Additional Past Surgical History / Comment(s): Pyoplasty - Lt Kidney Past Psychological History: ADD/ADHD, Anxiety, Bipolar Past Alcohol Use History: None Reported Past Drug Use History: Marijuana - Past Family History Mother History Unknown: Yes Family Medical History: Cancer Additional Family Medical History / Comment(s): 2 heart valves, cancer: Hodgeskin's lymphoma, thyroid, cervical, colon, breastx2 General Exam - General Exam Comments Initial Comments: Constitutional: NAD, AOX3, Pt has pleasant affect. HEENT: NC/AT, trachea midline, neck supple.Mucous membranes moist. EOM intact. There is no scleral icterus. No pallor noted. Cardiopulmonary: RRR, no murmurs, rubs or gallops, no JVD noted. Lungs CTAB in anterior and posterior holland. No peripheral edema. Abdominal exam: Abdomen soft and non-distended. Abdomen non-tender to palpation in all 4 quadrants. Neuro: CN II-XII grossly intact. No nuchal rigidity. No raccon eyes, MSK: right lateral malleolus anterior ankle region dorsal foot mildly tender to palpation. Sensation is intact. ROM intact. No proximal tib-fib tenderness. Posterior tibialis and radial pulse +2 bilaterally. No midfoot tenderness. Hand nontender with no skin changes. Neurovascularly intact. Limitations: no limitations Course Vital Signs 02/25/20 14:21 Temperature 97.8 F Pulse Rate 86 Respiratory 18 Rate Blood Pressure 126/86 O2 Sat by Pulse 98 Oximetry Medical Decision Making - Medical Decision Making 24-year-old male patient presents to ED for evaluation of right foot and ankle injury. Patient had a skateboard ran into his ankle. Patient has pain on the anterior aspect of the ankle mortise and lateral malleoli region. Patient is able to bear weight on the ankle. Range of motion is intact. Neurovascular. Plain films are negative. Patient placed in ankle stirrup splint. Patient also requested to have hand films. Patient reports that he had a boxer's fracture in his right hand a number of years back and never had follow-up. Reports That he sometimes has pain on the fifth metacarpal region. denies any acute pain at this time. Plain film of the hand did not display any acute abnormality. Some deformity of the fifth metacarpal is noted. Patient will be discharged with primary care provider and outpatient follow-up. Will return to ER if condition worsens. Case discussed with Dr. Armendariz. Disposition Clinical Impression: Ankle sprain, Chronic hand pain Disposition: HOME SELF-CARE Condition: Stable Instructions (If sedation given, give patient instructions): Foot Sprain (ED), Ankle Sprain (ED), Ankle Stirrup Splint (ED), R.I.C.E. Treatment (ED) Additional Instructions: Continue to wear ankle stirrup splint. Do not bear weight on right lower extremity. Recommend using crutches. RICE therapy. Follow-up with primary care provider and orthopedic consult tomorrow. Return to ER if any worsening symptoms. Is patient prescribed a controlled substance at d/c from ED?: No Referrals: Tej Snider PAC [REFERRING] - 1-2 days Man Parker DO [Medical Doctor] - 1-2 days
--- NOTE | 2020-02-25 15:07 | XR ---
EXAMINATION TYPE: XR foot complete RT DATE OF EXAM: 02/25/2020 COMPARISON: NONE HISTORY: Foot pain TECHNIQUE: 3 views FINDINGS: Metatarsals are intact. I see no fracture nor dislocation. Joint spaces are normal. IMPRESSION: Negative right foot exam. No fracture seen.
--- NOTE | 2020-02-25 15:07 | XR ---
EXAMINATION TYPE: XR ankle complete RT DATE OF EXAM: 02/25/2020 COMPARISON: NONE HISTORY: Foot pain ankle pain TECHNIQUE: 3 views FINDINGS: Ankle mortise is anatomic. I see no fracture nor dislocation. Joint spaces are normal. IMPRESSION: Negative right ankle exam.
--- NOTE | 2020-02-25 15:09 | XR ---
EXAMINATION TYPE: XR hand complete RT DATE OF EXAM: 02/25/2020 COMPARISON: 05/04/2018 HISTORY: Pain TECHNIQUE: 3 views FINDINGS: There is some deformity of the fifth metacarpal related to old healed fracture. I see no ac anatoly fracture nor dislocation. Joint spaces are normal. IMPRESSION: No acute abnormality of the right hand.
[2020-02-25 15:52] VITALS: BP 120/78; PULSE 81; RESP 16; TEMP 98
== END 2020-02-25 15:45 | disposition home or self-care (01) ==
LOC: EC 14:00
DX: S93.401A Sprain of unspecified ligament of right ankle, initial encounter (principal); M21.941 Unspecified acquired deformity of hand, right hand; S99.921A Unspecified injury of right foot, initial encounter; Z88.8 Allergy status to other drugs, medicaments and biological substances; Z88.1 Allergy status to other antibiotic agents; W22.8XXA Striking against or struck by other objects, initial encounter
CPT/HCPCS: 99284

== ENCOUNTER 2020-07-29 17:15 | Emergency (ER) | payer OTHER ==
[2020-07-29 17:21] VITALS: BP 103/62; PULSE 90; RESP 18; TEMP 98.4
[2020-07-29] MEDS ORDERED: ACET/COD 300 MG/30 MG STARTER PACK 6 TAB BTL PO STA (17:34)
[2020-07-29] MEDS ORDERED: PENICILLIN VK 500MG STARTER 4 TAB BTL PO STA (17:34)
[2020-07-29] MEDS ORDERED: HYDROcodone/APAP 5-325MG 1 EACH TAB PO STA (17:34)
--- NOTE | 2020-07-29 17:35 | ED ---
ENT HPI - General Chief complaint: Dental/Oral Stated complaint: tooth pain Time Seen by Provider: 07/29/20 17:22 Source: patient Mode of arrival: ambulatory Limitations: no limitations - History of Present Illness Initial comments: Patient is a 25-year-old male presenting to emergency Department with complaints of left upper tooth pain that started yesterday. Patient states it woke him up in the middle night as well. He denies any fever or chills, no nausea or vomiting. Denies any facial swelling. He states he tried some Tylenol as well as some medicated mouthwash without improvement in his pain. He denies any fractures of teeth. He has no further complaints at this time. - Related Data Previous Rx's Medication Instructions Recorded Acetaminophen Tab [Tylenol] 650 mg PO Q4HR PRN tab 11/11/19 Mirtazapine [Remeron] 15 mg PO HS 30 Days tab 11/11/19 Nicotine 21Mg/24Hr Patch [Habitrol] 1 patch TRANSDERM DAILY 14 Days 11/11/19 patch valACYclovir HCL [Valtrex] 1,000 mg PO BID 7 Days tablet 11/11/19 Penicillin V Potassium [Pen Vee K] 500 mg PO QID 7 Days #28 tablet 07/29/20 Allergies Allergy/AdvReac Type Severity Reaction Status Date / Time amphetamine [From Adderall] Allergy Severe Anaphylaxis Verified 07/29/20 17:21 dextroamphetamine Allergy Severe Anaphylaxis Verified 07/29/20 17:21 [From Adderall] escitalopram oxalate Allergy Severe Anaphylaxis Verified 07/29/20 17:21 [From Lexapro] methylphenidate Allergy Severe Anaphylaxis Verified 07/29/20 17:21 [From Ritalin] methylphenidate HCl Allergy Severe Anaphylaxis Verified 07/29/20 17:21 [From Concerta] risperidone [From Risperdal] Allergy Severe Anaphylaxis Verified 07/29/20 17:21 trazodone Allergy Severe Anaphylaxis Verified 07/29/20 17:21 ritiometan AdvReac Nausea & Verified 07/29/20 17:21 Vomiting Review of Systems ROS Statement: Those systems with pertinent positive or pertinent negative responses have been documented in the HPI. ROS Other: All systems not noted in ROS Statement are negative. Past Medical History Past Medical History: No Reported History History of Any Multi-Drug Resistant Organisms: None Reported Past Surgical History: Ear Surgery Additional Past Surgical History / Comment(s): Pyoplasty - Lt Kidney Past Psychological History: ADD/ADHD, Anxiety, Bipolar, Depression Smoking Status: Current every day smoker, Vaper Past Alcohol Use History: Occasional Past Drug Use History: Marijuana, Methamphetamine - Past Family History Mother History Unknown: Yes Family Medical History: Cancer Additional Family Medical History / Comment(s): 2 heart valves, cancer: Hodgeskin's lymphoma, thyroid, cervical, colon, breastx2 General Exam - General Exam Comments Initial Comments: GENERAL: Patient is well-developed and well-nourished. Patient is nontoxic and in no acute distress. HEAD: Atraumatic, normocephalic. EYES: Pupils equal round and reactive to light, extraocular movements intact, sclera a nicteric, conjunctiva are normal. Eyelids were unremarkable. ENT: TMs normal, nares patent, oropharynx clear without exudates. Moist mucous membranes. No visible dental abscess seen, no erythema, no facial swelling. NECK: Normal range of motion, supple without lymphadenopathy or JVD. LUNGS: Unlabored respirations. Breath sounds clear to auscultation bilaterally and equal. No wheezes rales or rhonchi. HEART: Regular rate and rhythm without murmurs, rubs or gallops. ABDOMEN: Soft, nontender, normoactive bowel sounds. No guarding, no rebound. No masses appreciated. : Deferred MUSCULOSKELETAL: Normal extremities with adequate strength and normal range of motion, no pitting or edema. No clubbing or cyanosis. NEUROLOGICAL: Patient is alert and oriented x 3. Motor and sensory are also intact. Cranial nerves II through XII grossly intact. Symmetrical smile. Normal speech, normal gait. PSYCH: Normal mood, normal affect. SKIN: Warm, Dry, normal turgor, no rashes or lesions noted. Limitations: no limitations Course Vital Signs 07/29/20 17:16 Temperature 98.4 F Pulse Rate 90 Respiratory 18 Rate Blood Pressure 103/62 O2 Sat by Pulse 96 Oximetry Medical Decision Making - Medical Decision Making Patient is a 25-year-old male here for left upper dental pain that started yesterday. No fevers, his vitals are stable. He has no facial swelling, no signs of visible dental abscess. I will start patient on antibiotic give him a tablet of pain here. Patient is stable for discharge. He can follow up with his dentist. He is in agreement with this plan of care. Return parameters were discussed with the patient he verbalizes understanding. Disposition Clinical Impression: Toothache Disposition: HOME SELF-CARE Condition: Stable Instructions (If sedation given, give patient instructions): Toothache (ED) Additional Instructions: Please return to the Emergency Department if symptoms worsen or any other concerns. Take antibiotic as prescribed. Alternate between Tylenol and Motrin for discomfort, may take Tylenol #3's for more severe pain. Follow up with your dentist in 1-3 days. Prescriptions: Penicillin V Potassium [Pen Vee K] 500 mg PO QID 7 Days #28 tablet Is patient prescribed a controlled substance at d/c from ED?: No Referrals: None,Stated [Primary Care Provider] - 1-2 days
== END 2020-07-29 17:46 | disposition home or self-care (01) ==
LOC: EC 17:15
DX: K08.89 Other specified disorders of teeth and supporting structures (principal); F17.290 Nicotine dependence, other tobacco product, uncomplicated; Z88.8 Allergy status to other drugs, medicaments and biological substances
CPT/HCPCS: 99282

== ENCOUNTER 2020-08-23 16:03 | Emergency (ER) | payer OTHER ==
--- NOTE | 2020-08-23 16:17 | ED ---
URI HPI - General Chief Complaint: Upper Respiratory Infection Stated Complaint: Cough Time Seen by Provider: 08/23/20 16:09 Source: patient, RN notes reviewed Mode of arrival: ambulatory Limitations: no limitations - History of Present Illness Initial Comments: Patient is a 25-year-old male that comes in the emergency department complaining of back cough for 1 day. He noted he woke up this morning with a cough that briefly went well he was eating food but then came back when she laid down. He noted that it was a dry cough with no production of mucus or phlegm. He stated that he has not been tested for or been diagnosed with covid. He was in no apparent distress or pain while sitting up in bed during the exam interview. He did note that he smokes a lot of cigarettes each day. He noted that he can emergency room because needlework no x-ray out of 6 days. She denied any chest pain shortness of breath headache nausea vomiting diarrhea constipation fever fatigue chills. - Related Data Previous Rx's Medication Instructions Recorded Acetaminophen Tab [Tylenol] 650 mg PO Q4HR PRN tab 11/11/19 Mirtazapine [Remeron] 15 mg PO HS 30 Days tab 11/11/19 Nicotine 21Mg/24Hr Patch [Habitrol] 1 patch TRANSDERM DAILY 14 Days 11/11/19 patch valACYclovir HCL [Valtrex] 1,000 mg PO BID 7 Days tablet 11/11/19 Penicillin V Potassium [Pen Vee K] 500 mg PO QID 7 Days #28 tablet 07/29/20 Allergies Allergy/AdvReac Type Severity Reaction Status Date / Time amphetamine [From Adderall] Allergy Severe Anaphylaxis Verified 08/23/20 16:07 dextroamphetamine Allergy Severe Anaphylaxis Verified 08/23/20 16:07 [From Adderall] escitalopram oxalate Allergy Severe Anaphylaxis Verified 08/23/20 16:07 [From Lexapro] methylphenidate Allergy Severe Anaphylaxis Verified 08/23/20 16:07 [From Ritalin] methylphenidate HCl Allergy Severe Anaphylaxis Verified 08/23/20 16:07 [From Concerta] risperidone [From Risperdal] Allergy Severe Anaphylaxis Verified 08/23/20 16:07 trazodone Allergy Severe Anaphylaxis Verified 08/23/20 16:07 ritiometan AdvReac Nausea & Verified 08/23/20 16:07 Vomiting Review of Systems ROS Statement: Those systems with pertinent positive or pertinent negative responses have been documented in the HPI. ROS Other: All systems not noted in ROS Statement are negative. Past Medical History Past Medical History: No Reported History History of Any Multi-Drug Resistant Organisms: None Reported Past Surgical History: Ear Surgery Additional Past Surgical History / Comment(s): Pyoplasty - Lt Kidney Past Psychological History: ADD/ADHD, Anxiety, Bipolar, Depression Smoking Status: Current every day smoker, Vaper Past Alcohol Use History: Occasional Past Drug Use History: Marijuana, Methamphetamine - Past Family History Mother History Unknown: Yes Family Medical History: Cancer Additional Family Medical History / Comment(s): 2 heart valves, cancer: Hodgeskin's lymphoma, thyroid, cervical, colon, breastx2 General Exam Limitations: no limitations General appearance: alert, in no apparent distress Head exam: Present: atraumatic, normocephalic, normal inspection Eye exam: Present: normal appearance, PERRL, EOMI. Absent: scleral icterus, conjunctival injection, periorbital swelling ENT exam: Present: normal exam, mucous membranes moist Neck exam: Present: normal inspection. Absent: tenderness, meningismus, lymphadenopathy Respiratory exam: Present: normal lung sounds bilaterally. Absent: respiratory distress, wheezes, rales, rhonchi, stridor Cardiovascular Exam: Present: regular rate, normal rhythm, normal heart sounds. Absent: systolic murmur, diastolic murmur, rubs, gallop, clicks GI/Abdominal exam: Present: soft, normal bowel sounds. Absent: distended, tenderness, guarding, rebound, rigid Extremities exam: Present: normal inspection, full ROM, normal capillary refill. Absent: tenderness, pedal edema, joint swelling, calf tenderness Neurological exam: Present: alert, oriented X3, CN II-XII intact Psychiatric exam: Present: normal affect, normal mood Skin exam: Present: warm, dry, intact, normal color, other (Many tattoos all over his body.). Absent: rash Course Vital Signs 08/23/20 08/23/20 16:04 16:34 Temperature 98.5 F Pulse Rate 102 H Respiratory 18 16 Rate Blood Pressure 133/84 O2 Sat by Pulse 100 Oximetry Medical Decision Making - Medical Decision Making 25-year-old male complaining of a nonproductive cough for one day. Chest x-ray, CBC CMP ordered. Chest x-ray within normal limits, labs unremarkable. Case discussed with Dr. Bacon, it was decided the patient to discharge home. - Lab Data Result diagrams: 08/23/20 16:27 08/23/20 16:27 Lab Results 08/23/20 08/23/20 08/23/20 Range/Units 16:27 16:27 16:27 WBC 11.7 H (3.8-10.6) k/uL RBC 4.45 (4.30-5.90) m/uL Hgb 13.9 (13.0-17.5) gm/dL Hct 41.5 (39.0-53.0) % MCV 93.2 (80.0-100.0) fL MCH 31.3 (25.0-35.0) pg MCHC 33.6 (31.0-37.0) g/dL RDW 12.5 (11.5-15.5) % Plt Count 193 (150-450) k/uL MPV 8.9 Neutrophils % 68 % Lymphocytes % 20 % Monocytes % 7 % Eosinophils % 2 % Basophils % 0 % Neutrophils # 8.0 H (1.3-7.7) k/uL Lymphocytes # 2.4 (1.0-4.8) k/uL Monocytes # 0.8 (0-1.0) k/uL Eosinophils # 0.3 (0-0.7) k/uL Basophils # 0.1 (0-0.2) k/uL Sodium 144 (137-145) mmol/L Potassium 4.2 (3.5-5.1) mmol/L Chloride 107 (98-107) mmol/L Carbon Dioxide 29 (22-30) mmol/L Anion Gap 8 mmol/L BUN 16 (9-20) mg/dL Creatinine 0.60 L (0.66-1.25) mg/dL Est GFR (CKD-EPI)AfAm >90 (>60 ml/min/1.73 sqM) Est GFR (CKD-EPI)NonAf >90 (>60 ml/min/1.73 sqM) Glucose 103 H (74-99) mg/dL Calcium 9.6 (8.4-10.2) mg/dL Total Bilirubin 0.4 (0.2-1.3) mg/dL AST 21 (17-59) U/L ALT 13 (4-49) U/L Alkaline Phosphatase 53 (38-126) U/L Total Protein 7.2 (6.3-8.2) g/dL Albumin 4.4 (3.5-5.0) g/dL Coronavirus (PCR) Not Detected (Not Detectd) - Radiology Data Radiology results: report reviewed, image reviewed No acute process Disposition Clinical Impression: Common cold Disposition: HOME SELF-CARE Instructions (If sedation given, give patient instructions): Upper Respiratory Infection (ED) Additional Instructions: Please return to the Emergency Department if symptoms worsen or any other concerns. Follow-up with primary care 1-2 days. Work note given. Rest, increase fluids. Is patient prescribed a controlled substance at d/c from ED?: No Referrals: Ketan Rodriguez MD [Primary Care Provider] - 1-2 days Time of Disposition: 17:29
[2020-08-23 16:35] VITALS: RESP 16
[2020-08-23 16:51] LABS: Basophils # (A) 0.1 k/uL (0-0.2); Basophils % (A) 0 %; Eosinophils # (A) 0.3 k/uL (0-0.7); Eosinophils % (A) 2 %; HCT 41.5 % (39.0-53.0); HGB 13.9 gm/dL (13.0-17.5); Lymphocytes # (A) 2.4 k/uL (1.0-4.8); Lymphocytes % (A) 20 %; MCH 31.3 pg (25.0-35.0); MCHC 33.6 g/dL (31.0-37.0); MCV 93.2 fL (80.0-100.0); Mean Platelet Volume 8.9; Monocytes # (A) 0.8 k/uL (0-1.0); Monocytes % (A) 7 %; Neutrophils % (A) 68 %; Platelet Count 193 k/uL (150-450); RBC 4.45 m/uL (4.30-5.90); RDW 12.5 % (11.5-15.5); WBC 11.7 k/uL (3.8-10.6)
[2020-08-23 16:59] LABS: ALT 13 U/L (4-49); AST 21 U/L (17-59); African American GFR (CKD) >90 (>60 ml/min/1.73 sqM); Albumin 4.4 g/dL (3.5-5.0); Alkaline Phosphatase 53 U/L (38-126); Anion Gap 8 mmol/L; Blood Urea Nitrogen 16 mg/dL (9-20); Calcium 9.6 mg/dL (8.4-10.2); Carbon Dioxide 29 mmol/L (22-30); Chloride 107 mmol/L (98-107); Glucose 103 mg/dL (74-99); Non-African American GFR(CKD) >90 (>60 ml/min/1.73 sqM); Potassium 4.2 mmol/L (3.5-5.1); Sodium 144 mmol/L (137-145); Total Bilirubin 0.4 mg/dL (0.2-1.3); Total Protein 7.2 g/dL (6.3-8.2)
--- NOTE | 2020-08-23 17:18 | XR ---
EXAMINATION TYPE: XR chest 1V portable DATE OF EXAM: 08/23/2020 COMPARISON: 12/16/2014 HISTORY: Cough TECHNIQUE: Single frontal view of the chest is obtained. FINDINGS: There is no focal air space opacity, pleural effusion, or pneumothorax seen. The cardiac silhouette size is within normal limits. The osseous structures are intact. Scoliotic curvature of the spine. IMPRESSION: No acute process.
[2020-08-23 18:02] VITALS: BP 121/65; PULSE 72; TEMP 98.2
== END 2020-08-23 18:00 | disposition home or self-care (01) ==
LOC: EC 16:03
DX: J00 Acute nasopharyngitis [common cold] (principal); F17.210 Nicotine dependence, cigarettes, uncomplicated; Z20.822 Contact with and (suspected) exposure to COVID-19; Z88.8 Allergy status to other drugs, medicaments and biological substances
CPT/HCPCS: 36415; 71045; 80053; 85025; 87635; 99283

== ENCOUNTER 2021-05-25 17:08 | Emergency (ER) | payer OTHER ==
[2021-05-25 17:29] VITALS: BP 124/81; PULSE 88; RESP 16; TEMP 98.1
[2021-05-25] MEDS ORDERED: DOXYCYCLINE 100 MG CAP PO STA (19:29)
[2021-05-25] MEDS ORDERED: cefTRIAXone 1,000 MG VIAL (IM USE) IM STA (19:29)
--- NOTE | 2021-05-25 19:32 | ED ---
Male Urogenital HPI - General Source: patient Mode of arrival: ambulatory Limitations: no limitations <Kailee Watson - Last Filed: 05/25/21 20:00> <Daisha Mejia - Last Filed: 05/30/21 01:29> - General Chief complaint: Urogenital Stated complaint: STD Time Seen by Provider: 05/25/21 19:18 - History of Present Illness Initial comments: 26-year-old male patient presents to the emergency Department with concerns for having Chlamydia. Patient states that he found out recently that her previous sexual partner tested positive. States he has been having some dysuria. Denies any purulent drainage or hematuria. Denies fever or chills. Denies any abdominal or back pain. Denies any testicular pain or swelling. (Kailee Watson) - Related Data Previous Rx's Medication Instructions Recorded Acetaminophen Tab [Tylenol] 650 mg PO Q4HR PRN tab 11/11/19 Mirtazapine [Remeron] 15 mg PO HS 30 Days tab 11/11/19 Nicotine 21Mg/24Hr Patch [Habitrol] 1 patch TRANSDERM DAILY 14 Days 11/11/19 patch valACYclovir HCL [Valtrex] 1,000 mg PO BID 7 Days tablet 11/11/19 Penicillin V Potassium [Pen Vee K] 500 mg PO QID 7 Days #28 tablet 07/29/20 Doxycycline [Vibramycin] 100 mg PO BID #14 capsule 05/25/21 Allergies Allergy/AdvReac Type Severity Reaction Status Date / Time amphetamine [From Adderall] Allergy Severe Anaphylaxis Verified 05/25/21 17:30 dextroamphetamine Allergy Severe Anaphylaxis Verified 05/25/21 17:30 [From Adderall] escitalopram oxalate Allergy Severe Anaphylaxis Verified 05/25/21 17:30 [From Lexapro] methylphenidate Allergy Severe Anaphylaxis Verified 05/25/21 17:30 [From Ritalin] methylphenidate HCl Allergy Severe Anaphylaxis Verified 05/25/21 17:30 [From Concerta] risperidone [From Risperdal] Allergy Severe Anaphylaxis Verified 05/25/21 17:30 trazodone Allergy Severe Anaphylaxis Verified 05/25/21 17:30 ritiometan AdvReac Nausea & Verified 05/25/21 17:30 Vomiting Review of Systems ROS Other: All systems not noted in ROS Statement are negative. <Kailee Watson - Last Filed: 05/25/21 20:00> ROS Other: All systems not noted in ROS Statement are negative. <Daisha Mejia - Last Filed: 05/30/21 01:29> ROS Statement: Those systems with pertinent positive or pertinent negative responses have been documented in the HPI. Past Medical History Past Medical History: No Reported History History of Any Multi-Drug Resistant Organisms: None Reported Past Surgical History: Ear Surgery Additional Past Surgical History / Comment(s): Pyoplasty - Lt Kidney Past Psychological History: ADD/ADHD, Anxiety, Bipolar, Depression Smoking Status: Current every day smoker, Vaper Past Alcohol Use History: None Reported Past Drug Use History: Marijuana, Methamphetamine - Past Family History Mother History Unknown: Yes Family Medical History: Cancer Additional Family Medical History / Comment(s): 2 heart valves, cancer: Hodgeskin's lymphoma, thyroid, cervical, colon, breastx2 <Kailee Watson - Last Filed: 05/25/21 20:00> General Exam Limitations: no limitations General appearance: alert, in no apparent distress Respiratory exam: Present: normal lung sounds bilaterally. Absent: respiratory distress, wheezes, rales, rhonchi, stridor Cardiovascular Exam: Present: regular rate, normal rhythm, normal heart sounds. Absent: systolic murmur, diastolic murmur, rubs, gallop, clicks GI/Abdominal exam: Present: soft, normal bowel sounds. Absent: distended, tenderness, guarding, rebound, rigid Neurological exam: Present: alert, oriented X3, CN II-XII intact Psychiatric exam: Present: normal affect, normal mood Skin exam: Present: warm, dry, intact, normal color. Absent: rash <Kailee Watson - Last Filed: 05/25/21 20:00> Course Vital Signs 05/25/21 17:25 Temperature 98.1 F Pulse Rate 88 Respiratory 16 Rate Blood Pressure 124/81 O2 Sat by Pulse 99 Oximetry Medical Decision Making <Kailee Watson - Last Filed: 05/25/21 20:00> <Daisha Mejia - Last Filed: 05/30/21 01:29> - Medical Decision Making 26-year-old male patient presents to the emergency department today turned for having Chlamydia. He reports dysuria and no other symptoms. He is afebrile. Vital signs are normal. We will test his urine for gonorrhea and chlamydia. He'll be given IM dose of Rocephin and started on doxycycline for 7 days. He was instructed to have no sexual contact until he has results, and if positive for 2 weeks thereafter. He is instructed to follow-up with his primary care physician for recheck in 1-2 days. Return parameters were discussed in detail. He verbalizes understanding and agrees with this plan. My attending is Dr. Mejia. (Kailee Watson) I was available for consultation in the emergency department. The history and physical exam were done by the midlevel provider. I was consulted for this patients care. I reviewed the case with the midlevel provider and based on their presentation of the patient, I agree with the assessment, medical decision making and plan of care as documented. Chart was dictated using [employer] dictation software. Attempts were made to correct any dictation errors however some typographical errors may persist. (Daisha Mejia) - Lab Data Lab Results 05/25/21 05/25/21 Range/Units 20:02 20:02 Urine Color Light Yellow Urine Appearance Clear (Clear) Urine pH 6.5 (5.0-8.0) Ur Specific [place] 1.016 (1.001-1.035) Urine Protein Negative (Negative) Urine Glucose (UA) Negative (Negative) Urine Ketones Negative (Negative) Urine Blood Trace H (Negative) Urine Nitrite Negative (Negative) Urine Bilirubin Negative (Negative) Urine Urobilinogen <2.0 (<2.0) mg/dL Ur Leukocyte Esterase Negative (Negative) Urine RBC 7 H (0-5) /hpf Urine WBC 3 (0-5) /hpf Ur Squamous Epith Cells <1 (0-4) /hpf Urine Mucus Rare H (None) /hpf Chlamydia Source Urine Chlamydia DNA (PCR) Positive A (Neg,Equiv) N. gonorrhoeae Source Urine N.gonorrhoeae DNA Probe Negative (Neg,Equiv) Disposition Is patient prescribed a controlled substance at d/c from ED?: No Time of Disposition: 19:32 <Kailee Watson - Last Filed: 05/25/21 20:00> <Daisha Mejia - Last Filed: 05/30/21 01:29> Clinical Impression: Dysuria Disposition: HOME SELF-CARE Condition: Good Instructions (If sedation given, give patient instructions): Sexually Transmitted Diseases (ED), Safe Sex (ED) Additional Instructions: Antibiotics until complete. Do not stop earlier infection will not be treated completely. Avoid sexual intercourse until you have your test results, these generally take three days, if positive no sexual intercourse for two weeks. Follow-up with the primary care physician for recheck in 1-2 days. Prescriptions: Doxycycline [Vibramycin] 100 mg PO BID #14 capsule Referrals: Ketan Rodriguez MD [Primary Care Provider] - 1-2 days
[2021-05-25 20:37] LABS: Appearance,Urine Clear (Clear); Bilirubin,Urine Negative (Negative); Blood,Urine Trace (Negative); Color,Urine Light Yellow; Glucose,Urine (UA) Negative (Negative); Ketones,Urine Negative (Negative); Leukocyte Esterase,Urine Negative (Negative); Mucus,Urine Rare /hpf; Nitrite,Urine Negative (Negative); PH, Urine 6.5 (5.0-8.0); Protein,Urine Negative (Negative); RBC,Urine 7 /hpf (0-5); Specific Gravity,Urine 1.016 (1.001-1.035); Squamous Epithelial Cell,Urine <1 /hpf (0-4); Urobilinogen,Urine <2.0 mg/dL (<2.0); WBC,Urine 3 /hpf (0-5)
[2021-05-27 14:02] LABS: C. trachomatis,PCR Positive (Neg,Equiv); Chlamydia trachomatis Source Urine; N. gonorrhoeae,PCR Negative (Neg,Equiv); Neisseria Source Urine
== END 2021-05-25 20:35 | disposition home or self-care (01) ==
LOC: EC 17:08
DX: A56.8 Sexually transmitted chlamydial infection of other sites (principal); F90.9 Attention-deficit hyperactivity disorder, unspecified type; F41.9 Anxiety disorder, unspecified; F31.9 Bipolar disorder, unspecified; F17.200 Nicotine dependence, unspecified, uncomplicated; F12.90 Cannabis use, unspecified, uncomplicated; Z88.1 Allergy status to other antibiotic agents; Z88.5 Allergy status to narcotic agent
CPT/HCPCS: 99283; 96372; 81001; 87491; 87591; J0696